=== PATIENT | male | born 1955 | race Caucasian/White ===

== ENCOUNTER 2019-06-15 07:50 | Day surgery (SDC) | payer BC ==
[~2019-06-15] VITALS: Ht 182.9 cm; Wt 87.1 kg
[~2019-06-15 07:50] MED LIST: LIDOCAINE 2% INJ 100 MG/5 ML SDV (FOR ANES.) As Ordered ONE; NS 1,000 ML IV ONE; propofoL 200 MG/20 ML VIAL As Ordered ONE
--- NOTE | 2019-06-15 09:15 | ROOR ---
Patient Name: Landry Monte Procedure Date: 06/15/2019 8:48 AM Date of : 1955 Age: 63 Room: [facility] Gender: Male Note Status: Finalized Procedure: Total Colonoscopy to Cecum + ileoscopy + Bx Indications: Screening for colorectal malignant neoplasm Providers: Fransisco Salcedo MD Referring MD: DAVE Contreras Requesting Provider: Medicines: Monitored Anesthesia Care Complications: No immediate complications. Procedure: Pre-Anesthesia Assessment: - The heart rate, respiratory rate, oxygen saturations, blood pressure, adequacy of pulmonary ventilation, and response to care were monitored throughout the procedure. The Colonoscope was introduced through the anus and advanced to the terminal ileum, with identification of the appendiceal orifice and IC valve. The colonoscopy was performed without difficulty. The patient tolerated the procedure well. The quality of the bowel preparation was excellent. Findings: The perianal and digital rectal examinations were normal. Non-bleeding internal hemorrhoids were found during retroflexion. The hemorrhoids were small and Grade I (internal hemorrhoids that do not prolapse). A small polyp was found in the transverse colon. The polyp was sessile. The polyp was removed with a jumbo cold forceps. Resection and retrieval were complete. No other significant abnormalities were identified in a careful examination of the remainder of the colon. The terminal ileum appeared normal. The exam was otherwise without abnormality. The entire examined colon appeared normal on direct and retroflexion views. Impression: - Non-bleeding internal hemorrhoids. - One small polyp in the transverse colon, removed with a jumbo cold forceps. Resected and retrieved. - The examined portion of the ileum was normal. - The examination was otherwise normal. - The entire examined colon is normal on direct and retroflexion views. - The exam was otherwise normal to the cecum. Recommendation: - Patient has a contact number available for emergencies. The signs and symptoms of potential delayed complications were discussed with the patient. Return to normal activities tomorrow. Written discharge instructions were provided to the patient. - High fiber diet. - Discharge patient to home. - Continue present medications. - Await pathology results. - Telephone GI clinic for pathology results in 1 week. - Repeat colonoscopy in 10 years for screening purposes. - Return to referring physician. - The findings and recommendations were discussed with the patient's family. Fransisco Salcedo MD Fransisco Salcedo MD 06/15/2019 9:15:48 AM Electronically signed by Fransisco Salcedo MD Number of Addenda: 0 Note Initiated On: 06/15/2019 8:48 AM Estimated Blood Loss: Estimated blood loss: none.
[2019-06-15 09:50] VITALS: BP 156/94
== END 2019-06-15 10:04 | disposition home or self-care (01) ==
LOC: M OPP 07:50
PROVIDERS: ATTEND Internal Medicine Gastroenterology
DX: Z12.11 Encounter for screening for malignant neoplasm of colon (principal); D12.3 Benign neoplasm of transverse colon; K64.0 First degree hemorrhoids

== ENCOUNTER 2024-06-22 09:51 | Day surgery (SDC) | payer BC, MEDICARE ==
[~2024-06-22] VITALS: Ht 182.9 cm; Wt 88.5 kg
[~2024-06-22 09:51] MED LIST changes: -LIDOCAINE 2% INJ 100 MG/5 ML SDV (FOR ANES.) As Ordered ONE; -NS 1,000 ML IV ONE; +THERTAB52 PO; -propofoL 200 MG/20 ML VIAL As Ordered ONE
[2024-06-22 11:18] VITALS: TEMP 97.1
[2024-06-22 11:40] VITALS: BP 126/82; O2SAT 98
[2024-06-22] MEDS ORDERED: LIDOCAINE 2% 100MG/5ML SDV (FOR ANES.) As Ordered ONE (11:52)
[2024-06-22] MEDS ORDERED: propofoL 200 MG/20 ML VIAL As Ordered ONE (11:52)
== END 2024-06-22 11:42 | disposition home or self-care (01) ==
LOC: M OPP 09:51
PROVIDERS: ATTEND Internal Medicine Gastroenterology
DX: D12.6 Benign neoplasm of colon, unspecified (principal); Z86.0100 Personal history of colon polyps, unspecified; K64.0 First degree hemorrhoids; F17.220 Nicotine dependence, chewing tobacco, uncomplicated; F17.290 Nicotine dependence, other tobacco product, uncomplicated; Z91.048 Other nonmedicinal substance allergy status; Z79.899 Other long term (current) drug therapy